=== PATIENT | female | born 2000 | race Two or more races ===

== ENCOUNTER 2022-01-27 07:07 | Emergency (ER) | payer OTHER ==
[~2022-01-27] VITALS: Ht 165.1 cm; Wt 59.0 kg
[2022-01-27] MEDS ORDERED: PROTONIX20 MG PO (12:03)
[2022-01-27] MEDS ORDERED: AMOX-CLAV 875-1 EACH PO (12:03)
== END 2022-01-27 12:07 | disposition home or self-care (01) ==
LOC: ER 07:07
DX: K44.9 Diaphragmatic hernia without obstruction or gangrene (principal); K21.9 Gastro-esophageal reflux disease without esophagitis